=== PATIENT | male | born 1995 | race Caucasian/White ===

== ENCOUNTER 2021-10-28 14:18 | Emergency (ER) | payer OTHER, SELFPAY ==
[2021-10-28 14:21] VITALS: BP 147/80; PULSE 85; RESP 18; TEMP 36.8; O2SAT 97; BMI 40.1
--- NOTE | 2021-10-28 14:35 | XR_ITS ---
FINAL REPORT CLINICAL HISTORY: crushed finger, lack, pain FINDINGS: RIGHT THIRD FINGER Three views demonstrate a comminuted fracture involving the distal phalanx of the third digit. There are probable loose bodies in the dorsal soft tissues. No other fracture or dislocation. IMPRESSION: Fracture as above. Reviewed, Interpreted and Dictated by Ronaldo Samano III, MD Transcribed by Lacey Reeves Authenticated by Ronaldo Samano III, MD on 10/28/2021 03:37:38 PM [facility]
--- NOTE | 2021-10-28 15:30 | PC.NURSE ---
pt states no needs at this time, family at BS
--- NOTE | 2021-10-28 15:52 | [facility].EDGENADL ---
ED Disposition Clinical Impression: Nail avulsion Nailbed laceration, finger Qualifiers: Encounter type: initial encounter Qualified Code(s): S61.319A - Laceration without foreign body of unspecified finger with damage to nail, initial encounter Phalanx, distal fracture of finger Qualifiers: Encounter type: initial encounter Finger: middle finger Fracture type: open Fracture alignment: displaced Laterality: right Qualified Code(s): S62.632B - Displaced fracture of distal phalanx of right middle finger, initial encounter for open fracture Disposition: Home, Self-Care Condition on Discharge: Good Instructions: DI for Laceration Repair, DI for Nail Bed Injury Additional Instructions: Follow-up with orthopedics, Dr. Lock, within 1 week. Call tomorrow to make appointment. Keflex as prescribed. [place] as needed for pain. Elevate hand for 2 days to reduce pain and swelling. Additional instructions for HAND LACERATION: Clean the wound daily with soap and water. Reapply Neosporin ointment, bandage and splint after cleansing. Avoid submerging the wound. No swimming. See your primary care physician or return to the [facility] in 10 days for suture removal. The [facility] is open 9 AM to 9 PM 7 days a week. Return if any signs of infection including increasing pain, pus drainage, swelling, redness, red streaks, or fever. Additional instructions for CONTROLLED SUBSTANCES: You have been prescribed a medication that is a controlled substance. Controlled substances include pain medications known as opiates and sedative nerve medications known as benzodiazepines. Tramadol, fioricet, and gabapentin are also controlled substances. Some common opiates include: Codeine (such as Tylenol #3) Hydrocodone (Vicodin, Lortab, Lorcet, [place]) Oxycodone (Percocet, Percodan, Oxycodone, Oxy IR) Some common benzodiazepines include: Diazepam (Valium) Lorazepam (Ativan) Alprazolam (Xanax) Clonazepam (Klonopin) Oxazepam (Serax) All of these controlled substances are highly addictive and frequently abused. Misuse can and frequently does lead to addiction as well as overdose and . Medication should be stored in a locked cabinet or other secure storage unit. Do not store the medication in a motor vehicle. Short term supplies, 3 days or less, are prescribed because of the highly addictive nature of the medication. Any of the controlled substance medication NOT taken should be disposed of properly and NOT SAVED. The recommended method of disposing of unused medications is: Place the medicines in a sealable plastic bag. If the medicine is a solid, crush it or add water to dissolve it. Add something undesirable (cat litter, coffee grounds, etc.) Dispose of sealed bag in household trash Do not flush or pour unused medicines down a sink or drain. Controlled substances should not be shared, given away or sold. Because of the addictive nature and frequent abuse, these medications are sometimes stolen. These medications should be kept in a safe place where they cannot be stolen. Do not keep them in your car or purse. Lost or stolen prescriptions for controlled substances WILL NOT BE REFILLED in this emergency department, regardless of whether a police report was filed. Prescriptions: Hydrocod/Acet 5/325 mg [[place] 5/325mg tablet] 1 tab PO Q6HP PRN #10 tab PRN Reason: Pain Transmission Status: Sent to [facility] [address] cephALEXin [cephALEXin 500mg capsule*] 500 mg PO Q6H #28 cap Transmission Status: Pending to [facility] [id number] Referrals: Adam Tejada MD [Primary Care Provider] - Jesus Lock MD [Staff Physician] - - Critical Care Critical Care Time: No Attestation: On 10/28/21, the high probability of a clinically significant, sudden or life threatening deterioration of the following system(s) required my full and direct attention, intervention and personal manageme
--- NOTE | 2021-10-28 15:54 | PC.NURSE ---
ED MD at
--- NOTE | 2021-10-28 16:24 | PC.NURSE ---
ED MD at
[2021-10-28 17:56] VITALS: BP 140/70; PULSE 70; RESP 16; TEMP 36.7; O2SAT 98
== END 2021-10-28 17:57 | disposition home or self-care (01) ==
PROVIDERS: Emergency Provider Emergency Medicine; PCP Internal Medicine Rheumatology
DX: S61.312A Laceration without foreign body of right middle finger with damage to nail, initial encounter (principal); S62.632B Displaced fracture of distal phalanx of right middle finger, initial encounter for open fracture; Y99.0 Civilian activity done for income or pay; W22.8XXA Striking against or struck by other objects, initial encounter; Y92.69 Other specified industrial and construction area as the place of occurrence of the external cause; Z23 Encounter for immunization
CPT/HCPCS: 11760; 73140; 90471; 90715; 99283